=== PATIENT | female | born 1990 | race Caucasian/White ===

== ENCOUNTER 2021-05-23 17:43 | Emergency (ER) | payer OTHER | END 2021-05-23 21:00 | disposition home or self-care (01) | LOC: ER1 17:43 | DX: Z04.1 Encounter for examination and observation following transport accident (principal); V89.2XXA Person injured in unspecified motor-vehicle accident, traffic, initial encounter; Z3A.19 19 weeks gestation of pregnancy | CPT/HCPCS: 99283 ==